=== PATIENT | female | born 1940 | race Caucasian/White ===

== ENCOUNTER → 2019-02-27 | Outpatient (CLI) | payer MEDICARE | END | disposition home or self-care (01) | LOC: RADPV 15:13 | PROVIDERS: ATTEND Podiatrist Foot & Ankle Surgery | DX: M25.572 Pain in left ankle and joints of left foot (principal) ==

== ENCOUNTER → 2019-04-27 | Outpatient (CLI) | payer MEDICARE ==
[2019-04-27 19:33] LABS: APPEARANCE,URINE CLOUDY (CLEAR); BILIRUBIN,URINE NEGATIVE (NEGATIVE); GLUCOSE, URINE (UA) NEGATIVE (NEGATIVE); KETONES,URINE NEGATIVE (NEGATIVE); LEUKOCYTE ESTERASE ,URINE SMALL (NEGATIVE); NITRATE,URINE NEGATIVE (NEGATIVE); OCCULT BLOOD,URINE NEGATIVE (NEGATIVE); PH,URINE 5.5 (5.0-8.0); PROTEIN,URINE NEGATIVE (NEGATIVE); UROBILINOGEN,URINE 0.2 mg/dL (<=1.0)
[2019-04-27 19:39] LABS: RBC,URINE None Seen /HPF (0-2)
[2019-04-27 19:40] LABS: BACTERIA,URINE Moderate /HPF (None Seen); RENAL EPITHELIAL CELLS,URINE Rare /LPF (None Seen); SQUAMOUS EPITHELIAL CELL,UR Moderate /LPF (None Seen)
== END | disposition home or self-care (01) ==
LOC: PUC 16:46
PROVIDERS: ATTEND Nurse Practitioner
DX: N39.0 Urinary tract infection, site not specified (principal)
CPT/HCPCS: 87086

== ENCOUNTER → 2019-07-30 | Outpatient (CLI) | payer MEDICARE | END | disposition home or self-care (01) | LOC: RADPV 13:50 | PROVIDERS: ATTEND Legal Medicine | DX: I65.21 Occlusion and stenosis of right carotid artery (principal) | CPT/HCPCS: 93880 ==

== ENCOUNTER → 2019-09-25 | Outpatient (CLI) | payer MEDICARE ==
[2019-09-25 16:42] LABS: BASOPHILS % (AUTO) 0.6 % (0.0-2.0); EOSINOPHILS % (AUTO) 6.5 % (1.0-6.0); HEMATOCRIT 38.2 % (36-46); HEMOGLOBIN 12.6 g/dL (12.0-16.0); LYMPHOCYTES # (AUTO) 1.3 K/uL (1.0-4.8); LYMPHOCYTES % (AUTO) 17.4 % (22.0-44.0); MEAN CORPUSCULAR VOLUME 91 fL (80-100); MONOCYTES # (AUTO) 0.6 K/uL (0.1-1.0); MONOCYTES % (AUTO) 8.2 % (2.0-9.0); NEUTROPHILS # (AUTO) 5.1 K/uL (1.8-7.7); NEUTROPHILS % (AUTO) 67.3 % (40.0-70.0); PLATELET COUNT (AUTO) 260 K/uL (150-450); RED BLOOD CELL COUNT(AUTO) 4.19 MIL/uL (4.00-5.20); RED CELL DISTRIBUTION WIDTH 13.6 % (11.5-14.5)
== END | disposition home or self-care (01) ==
LOC: LABMN 16:15
PROVIDERS: ATTEND Legal Medicine
DX: J18.9 Pneumonia, unspecified organism (principal)

== ENCOUNTER → 2020-02-27 | Outpatient (CLI) | payer MEDICARE | END | disposition home or self-care (01) | LOC: RADPV 12:12 | PROVIDERS: ATTEND Orthopaedic Surgery | DX: S82.892A Other fracture of left lower leg, initial encounter for closed fracture (principal); M79.89 Other specified soft tissue disorders; X58.XXXA Exposure to other specified factors, initial encounter; Y93.89 Activity, other specified; Y92.89 Other specified places as the place of occurrence of the external cause; Y99.8 Other external cause status | CPT/HCPCS: 73610-TC ==

== ENCOUNTER → 2020-03-25 | Outpatient (CLI) | payer MEDICARE | END | disposition home or self-care (01) | LOC: RADMN 13:23 | PROVIDERS: ATTEND Orthopaedic Surgery | DX: R60.0 Localized edema (principal); R52 Pain, unspecified | CPT/HCPCS: 73718 ==

== ENCOUNTER → 2021-03-11 | Outpatient (CLI) | payer MEDICARE ==
[~2021-03-11] MED LIST: ALBU8HFA IH; ASPI-1450 PO; BUSP10TA23 PO; DICY10 PO; DIPH-654 PO; EZET10TA57 PO; HYD25 PO; HYDR-4072 PO; LOSA50TA37 PO; PANT-31 PO; PREG75 PO; ROSU10TA72 PO; SERT-162 PO; TIOT185 IH; UMEC1DIS IH; ZOLP-280 PO
== END | disposition home or self-care (01) ==
LOC: RADPV 13:09
PROVIDERS: ATTEND Legal Medicine
DX: I65.21 Occlusion and stenosis of right carotid artery (principal)
CPT/HCPCS: 93880

== ENCOUNTER → 2021-10-06 | Outpatient (CLI) | payer MEDICARE ==
[~2021-10-06] MED LIST changes: -HYD25 PO; +HYDR-4527 PO; +LOSA-382 PO; -LOSA50TA37 PO
== END | disposition home or self-care (01) ==
LOC: RADPV 13:46
PROVIDERS: ATTEND Legal Medicine
DX: I65.21 Occlusion and stenosis of right carotid artery (principal)
CPT/HCPCS: 93880

== ENCOUNTER 2023-02-09 17:13 | Emergency (ER) | payer MEDICARE ==
[~2023-02-09] VITALS: Ht 152.4 cm; Wt 63.2 kg
[~2023-02-09 17:13] MED LIST changes: +ALBU18HF12 IH; -ALBU8HFA IH; +DICY-1 PO; -DICY10 PO
[2023-02-09] MEDS ORDERED: ASPI81TA87 PO (17:56)
[2023-02-09] MEDS ORDERED: PREG20SO PO (17:56)
[2023-02-09] MEDS ORDERED: DULO-113 PO (17:56)
[2023-02-09] MEDS ORDERED: PANT-31 PO (17:56)
[2023-02-09] MEDS ORDERED: ROSU10TA72 PO (17:56)
[2023-02-09] MEDS ORDERED: TOLT2TAB2 PO (17:56)
[2023-02-09] MEDS ORDERED: LOSA-382 PO (17:56)
[2023-02-09] MEDS ORDERED: ZOLP-280 PO (17:56)
[2023-02-09] MEDS ORDERED: SERT-162 PO (17:56)
[2023-02-09] MEDS ORDERED: EZET10TA57 PO (17:56)
[2023-02-09] MEDS ORDERED: HYDR25TA2 PO (17:56)
[2023-02-09] MEDS ORDERED: ARIP5TAB8 PO (17:56)
[2023-02-09] MEDS ORDERED: ALEN70TA65 PO (17:56)
[2023-02-09] MEDS ORDERED: DICY-1 PO ×2 (18:13)
[2023-02-09] MEDS ORDERED: TIOT185 IH (18:13)
[2023-02-09] MEDS ORDERED: ALBU18HF12 IH (18:13)
[2023-02-09] MEDS ORDERED: HYDR10SY9 PO (18:13)
[2023-02-09] MEDS ORDERED: DIPH-654 PO (18:13)
[2023-02-09] MEDS ORDERED: UMEC1DIS IH (18:13)
[2023-02-09] MEDS ORDERED: HYDR-4069 PO (18:13)
[2023-02-09 20:43] VITALS: BP 111/56; PULSE 88; RESP 16; TEMP 97.7
[2023-02-09] MEDS ORDERED: HYDROCODONE/ACETAMINOPHEN 5-325 MG TABLET PO ONE (21:00)
[2023-02-09] MEDS ORDERED: CLINDAMYCIN HCL 150 MG CAPSULE PO ONE (21:00)
[2023-02-09] MEDS ORDERED: CLIN-142 PO (21:39)
== END 2023-02-09 21:46 | disposition home or self-care (01) ==
LOC: EMS 17:17
DX: L03.115 Cellulitis of right lower limb (principal); M19.90 Unspecified osteoarthritis, unspecified site; I10 Essential (primary) hypertension; Z87.891 Personal history of nicotine dependence; Z96.642 Presence of left artificial hip joint; Z96.652 Presence of left artificial knee joint; Z88.2 Allergy status to sulfonamides
CPT/HCPCS: 93971; 99284; Z7502; Z7610